=== PATIENT | male | born 1965 | race African-American/Black ===

== ENCOUNTER 2019-07-30 21:05 | Emergency (ER) | payer BC ==
[~2019-07-30] VITALS: Ht 182.8 cm; Wt 144.7 kg
[~2019-07-30 21:05] MED LIST: HYDROCODON-ACE1 EAC8 PO; HYDROCODONE-AP1 EAC6 PO; LISINOPRIL10 MG PO; METFORMIN HCL500 MG PO; NITROGLYCERIN0.4 MG SUBLING; ONDANSETRON HCL4 M2 PO; OXYCONTIN10 M1 PO; PERCOCET PO; TRULICITY0.75 MG/0.; ULTRAM 50MG TAB50 MG PO
[2019-07-30] MEDS ORDERED: METFORMIN HCL500 M3 PO (21:17)
[2019-07-30] MEDS ORDERED: TESSALON PERLE100 MG PO (21:46)
[2019-07-30] MEDS ORDERED: AMOXICILLIN 50500 MG PO (21:46)
[2019-07-30 21:52] VITALS: BP 145/78
== END 2019-07-30 21:53 | disposition home or self-care (01) ==
LOC: M.ERS 21:05
DX: J06.9 Acute upper respiratory infection, unspecified (principal); H66.92 Otitis media, unspecified, left ear; I10 Essential (primary) hypertension; E11.9 Type 2 diabetes mellitus without complications

== ENCOUNTER 2019-11-06 12:08 | Emergency (ER) | payer BC ==
[~2019-11-06] VITALS: Ht 182.9 cm; Wt 144.7 kg
[~2019-11-06 12:08] MED LIST changes: +AMOXICILLIN 50500 MG PO; +METFORMIN HCL500 M3 PO; +TESSALON PERLE100 MG PO
[2019-11-06] MEDS ORDERED: NABUMETONE 750750 M1 PO (13:22)
[2019-11-06] MEDS ORDERED: NORCO 5-325 TA1 EAC1 PO (13:22)
[2019-11-06 13:53] VITALS: BP 175/124
== END 2019-11-06 13:55 | disposition home or self-care (01) ==
LOC: M.ERS 12:08
DX: M25.561 Pain in right knee (principal); I10 Essential (primary) hypertension; E11.9 Type 2 diabetes mellitus without complications

== ENCOUNTER 2021-05-09 22:55 | Emergency (ER) | payer OTHER, BC ==
[~2021-05-09] VITALS: Ht 182.9 cm; Wt 145.2 kg
[~2021-05-09 22:55] MED LIST changes: +NABUMETONE 750750 M1 PO; +NORCO 5-325 TA1 EAC1 PO
[2021-05-10 02:11] VITALS: BP 178/106
--- NOTE | 2021-05-10 14:18 | EKG ---
[place] [address] ELECTROCARDIOGRAM REPORT Name: ANIBAL OLIVERA Room: [facility]#: [id number] Admission: 05/09/21 Attend Phys: Discharge: 05/10/21 Date of : 63 Date of Service: 05/09/21 2314 Report #: [id number] THIS REPORT FOR: //name// [facility] ED Test Date: 2021-05-09 Test Time: 23:14:54 Pat Name: ANIBAL OLIVERA Department: Room: Gender: Research Specialist: [facility] : 1965 Requested By: Carlota Caicedo Order Number: [id number] MD: Carlos Kerr Measurements Intervals Umbarger Rate: 86 P: 40 MD: 161 QRS: -32 QRSD: 107 T: 77 QT: 410 QTc: 491 Interpretive Statements Sinus rhythm Left axis deviation Borderline prolonged QT interval Baseline wander in lead(s) I,III,aVR,aVL,aVF,V1,V2,V3 Compared to ECG 01/05/2017 21:06:00 Left-axis deviation persists Incomplete right bundle-branch block no longer present Myocardial infarct finding no longer present Electronically Signed On 05-10-2021 14:17:53 [employer] by Carlos Kerr [email or web address] <ELECTRONICALLY SIGNED> By: Carlos Kerr MD, [facility] 05/10/21 1417 2314 2314 Carlos Kerr MD, [facility] /EPI
== END 2021-05-10 02:11 | disposition short-term general hospital (02) ==
LOC: M.ERS 22:55
DX: M54.2 Cervicalgia (principal); Z20.822 Contact with and (suspected) exposure to COVID-19; R20.2 Paresthesia of skin; I10 Essential (primary) hypertension; E11.9 Type 2 diabetes mellitus without complications; Z98.890 Other specified postprocedural states; Z79.899 Other long term (current) drug therapy; V89.0XXA Person injured in unspecified motor-vehicle accident, nontraffic, initial encounter; Y93.89 Activity, other specified; Y92.69 Other specified industrial and construction area as the place of occurrence of the external cause; Y99.9 Unspecified external cause status